=== PATIENT | male | born 1955 | race Caucasian/White ===

== ENCOUNTER 2018-03-01 18:20 | Inpatient (IN) | payer OTHER ==
[~2018-03-01] VITALS: Ht 190.5 cm; Wt 101.8 kg
[2018-03-01 19:56] VITALS: BP 104/61
[2018-03-01] MEDS ORDERED: CYAN-10 PO (20:03)
[2018-03-01] MEDS ORDERED: MAGN400O7 PO (20:03)
[2018-03-01] MEDS ORDERED: morphine SULFATE 10 MG/ML, 1ML IVPush PRN (21:30)
[2018-03-01] MEDS ORDERED: BISACODYL 10 MG SUPP PR PRN (21:30)
[2018-03-01] MEDS: SODIUM CHLORIDE 0.9% 1,000 ML IV SCH (22:44)
[2018-03-02] VITALS (11 sets, daily range): BP systolic 97–116; BP diastolic 42–65
[2018-03-02 05:16] LABS: MEAN CORPUSCULAR HEMOGLOBIN 23.8 pg (27.5-34.5); MEAN CORPUSCULAR HGB CONC 31.6 g/dL (33.2-36.2); MEAN CORPUSCULAR VOLUME 75.3 fL (81-97); MEAN PLATELET VOLUME 7.8 fL (7.4-10.4); PLATELET COUNT 73 x10^3/uL (130-400); RED BLOOD COUNT 2.69 x10^6/uL (4.38-5.82); RED CELL DISTRIBUTION WIDTH 20.8 % (9.4-14.8)
[2018-03-02 05:21] LABS: CHLORIDE 109 mmol/L (98-107)
[2018-03-02 05:30] LABS: ALANINE AMINOTRANSFERASE 12 U/L (12-78); ALBUMIN 2.7 g/dL (3.4-5.0); ALKALINE PHOSPHATASE 71 U/L (45-117); BILIRUBIN,TOTAL 1.4 mg/dL (0.2-1.0); CALCIUM 7.7 mg/dL (8.5-10.1); CREATININE 1.57 mg/dL (0.7-1.3)
[2018-03-02 05:52] LABS: MD YES
[2018-03-02 05:56] LABS: LYMPH#(MANUAL) 28.13 x10^3/uL (1-3.4); LYMPHS% (MANUAL) 98 % (22-44); SEG#(MANUAL) 0.57 x10^3/uL (1.8-6.8); SEGS% (MANUAL) 2 % (42-75)
[2018-03-02 05:57] LABS: <PLATELET ESTIMATE> DECREASED; <PLT MORPHOLOGY> NORMAL PLT MORPH; ANISOCYTOSIS 2+; MICROCYTOSIS 1+; OVALOCYTES 1+; POLYCHROMASIA 1+
[2018-03-02 06:09] LABS: ANION GAP 6 mmol/L (5-15)
[2018-03-02] MEDS: SENNA/DOCUSATE TABLET PO SCH (09:38)
[2018-03-02] MEDS ORDERED: IRON DEXTRAN IV PER PHARMACY IV PRN (10:00)
[2018-03-02] MEDS ORDERED: IRON DEXTRAN COMPLEX 25 MG in SODIUM CHLORIDE 0.9% 50 ML IV ONE (10:00)
[2018-03-02] MEDS: SODIUM CHLORIDE 0.9% 1,000 ML IV SCH ×2 (10:38→18:24)
[2018-03-02] MEDS ORDERED: IRON DEXTRAN COMPLEX IV ONE ×3 (11:00→21:00)
[2018-03-02] MEDS ORDERED: IRON DEXTRAN IV PER PHARMACY IV ONE (11:00)
[2018-03-02] MEDS ORDERED: SODIUM CHLORIDE 0.9% IV ONE ×3 (11:00→21:00)
[2018-03-02 11:14] LABS: HCT (SEDRATE) 21.1 % (39.2-51.8)
[2018-03-02] MEDS: ONDANSETRON 2MG/ML, 2ML IVPush PRN ×2 (12:14→18:24)
[2018-03-02] MEDS: ACETAMINOPHEN 325 MG TABLET PO PRN (16:01)
[2018-03-02] MEDS: POLYETHYLENE GLYCOL 17 GM PACKET PO PRN (17:43)
[2018-03-03] MEDS: ONDANSETRON 2MG/ML, 2ML IVPush PRN (00:50)
[2018-03-03 01:58] VITALS: BP 100/62
[2018-03-03 05:01] LABS: MEAN CORPUSCULAR HEMOGLOBIN 24.2 pg (27.5-34.5); MEAN CORPUSCULAR HGB CONC 31.8 g/dL (33.2-36.2); MEAN CORPUSCULAR VOLUME 76.1 fL (81-97); MEAN PLATELET VOLUME 7.7 fL (7.4-10.4); PLATELET COUNT 80 x10^3/uL (130-400); RED BLOOD COUNT 3.15 x10^6/uL (4.38-5.82); RED CELL DISTRIBUTION WIDTH 21.5 % (9.4-14.8)
[2018-03-03 05:02] LABS: ANION GAP 4 mmol/L (5-15); CALCIUM 8.1 mg/dL (8.5-10.1); CHLORIDE 109 mmol/L (98-107); CREATININE 1.45 mg/dL (0.7-1.3)
[2018-03-03 05:44] LABS: MD YES
[2018-03-03 05:45] LABS: ANISOCYTOSIS 1+; LYMPH#(MANUAL) 29.57 x10^3/uL (1-3.4); LYMPHS% (MANUAL) 93 % (22-44); OVALOCYTES 1+; POLYCHROMASIA 1+; SEG#(MANUAL) 2.23 x10^3/uL (1.8-6.8); SEGS% (MANUAL) 7 % (42-75); TEAR DROPS 1+
[2018-03-03 05:46] LABS: <PLATELET ESTIMATE> DECREASED; <PLT MORPHOLOGY> NORMAL PLT MORPH; MICROCYTOSIS 1+
[2018-03-03 07:11] VITALS: BP 100/61
[2018-03-03] MEDS ORDERED: LIDOCAINE-MPF 2%, 2ML ONE (09:23)
[2018-03-03 12:42] VITALS: BP 103/63
[2018-03-03] MEDS: POLYETHYLENE GLYCOL 17 GM PACKET PO PRN (13:10)
[2018-03-03] MEDS: SENNA/DOCUSATE TABLET PO SCH (13:10)
[2018-03-03] MEDS: ONDANSETRON ODT 4 MG PO PRN (13:10)
[2018-03-03] MEDS ORDERED: BISACODYL 10 MG SUPP PR ONE (16:00)
[2018-03-03] MEDS: SODIUM CHLORIDE 0.9% 1,000 ML IV SCH (16:12)
[2018-03-03] MEDS: ACETAMINOPHEN 325 MG TABLET PO PRN (16:27)
[2018-03-03 20:40] VITALS: BP 100/59
[2018-03-04] MEDS: SODIUM CHLORIDE 0.9% 1,000 ML IV SCH ×2 (01:54→13:52)
[2018-03-04 04:00] VITALS: BP 98/56
[2018-03-04] MEDS: ONDANSETRON ODT 4 MG PO PRN ×2 (04:06→18:20)
[2018-03-04 04:23] LABS: MEAN CORPUSCULAR HEMOGLOBIN 24.5 pg (27.5-34.5); MEAN CORPUSCULAR HGB CONC 31.9 g/dL (33.2-36.2); MEAN CORPUSCULAR VOLUME 76.6 fL (81-97); MEAN PLATELET VOLUME 7.4 fL (7.4-10.4); PLATELET COUNT 87 x10^3/uL (130-400); RED BLOOD COUNT 3.33 x10^6/uL (4.38-5.82)
[2018-03-04 04:28] LABS: ANION GAP 5 mmol/L (5-15); CALCIUM 8.2 mg/dL (8.5-10.1); CHLORIDE 109 mmol/L (98-107); CREATININE 1.41 mg/dL (0.7-1.3)
[2018-03-04 04:40] LABS: BASOPHILS # (AUTO) 0.02 x10^3/uL (0-0.1); BASOPHILS % (AUTO) 0 % (0-1); EOSINOPHILS # (AUTO) 0.07 x10^3/uL (0-0.4); EOSINOPHILS % (AUTO) 0 % (1-7); LYMPHOCYTES # (AUTO) 28.16 x10^3/uL (1-3.4); LYMPHOCYTES % (AUTO) 90 % (22-44); MD SCAN; MONOCYTES % (AUTO) 4 % (2-9); NEUTROPHILS # (AUTO) 1.84 x10^3/uL (1.8-6.8); NEUTROPHILS % (AUTO) 6 % (42-75)
[2018-03-04 07:45] VITALS: BP 100/58
[2018-03-04] MEDS ORDERED: LIDOCAINE-MPF 2%, 2ML ONE (07:52)
[2018-03-04] MEDS ORDERED: FENTANYL PF 100 MCG/2ML ONE (08:00)
[2018-03-04] MEDS ORDERED: FLUMAZENIL 0.1 MG/1 ML, 5ML ONE (08:01)
[2018-03-04] MEDS ORDERED: NALOXONE 1 MG/ML, 2ML ONE (08:01)
[2018-03-04] MEDS ORDERED: MIDAZOLAM 1 MG/ML, 5ML ONE (08:01)
[2018-03-04] MEDS: SENNA/DOCUSATE TABLET PO SCH (09:00)
[2018-03-04 09:11] VITALS: BP 102/55
[2018-03-04 16:15] VITALS: BP 101/58
[2018-03-04] MEDS ORDERED: OMNIPAQUE 350 MG/ML, 100ML BOTTLE ONE (17:27)
[2018-03-04] MEDS: ACETAMINOPHEN 325 MG TABLET PO PRN (18:20)
[2018-03-04 20:20] VITALS: BP 105/64
[2018-03-04] MEDS ORDERED: FAMOTIDINE 20 MG/2 ML IVPush SCH (21:00)
[2018-03-04] MEDS: FAMOTIDINE 20 MG TABLET PO SCH (21:26)
[2018-03-05] MEDS: SODIUM CHLORIDE 0.9% 1,000 ML IV SCH ×3 (01:42→20:32)
[2018-03-05 04:20] VITALS: BP 97/58
[2018-03-05 08:00] VITALS: BP 103/62
[2018-03-05] MEDS: ACETAMINOPHEN 325 MG TABLET PO PRN (10:05)
[2018-03-05] MEDS: FAMOTIDINE 20 MG TABLET PO SCH ×2 (10:05→20:32)
[2018-03-05] MEDS: SENNA/DOCUSATE TABLET PO SCH (10:05)
[2018-03-05 13:52] VITALS: BP 100/58
[2018-03-05 20:02] VITALS: BP 106/65
[2018-03-06 03:04] VITALS: BP 107/66
[2018-03-06 04:55] LABS: MEAN CORPUSCULAR HEMOGLOBIN 24.6 pg (27.5-34.5); MEAN CORPUSCULAR HGB CONC 32.3 g/dL (33.2-36.2); MEAN CORPUSCULAR VOLUME 76.3 fL (81-97); RED BLOOD COUNT 2.95 x10^6/uL (4.38-5.82); RED CELL DISTRIBUTION WIDTH 22.7 % (9.4-14.8)
[2018-03-06 05:00] VITALS: BP 146/78
[2018-03-06] MEDS: SODIUM CHLORIDE 0.9% 1,000 ML IV SCH ×2 (05:39→19:48)
[2018-03-06 05:46] LABS: MD YES
[2018-03-06 05:47] LABS: MEAN PLATELET VOLUME 7.2 fL (7.4-10.4); PLATELET COUNT 75 x10^3/uL (130-400)
[2018-03-06 05:48] LABS: <PLATELET ESTIMATE> DECREASED; <PLT MORPHOLOGY> NORMAL PLT MORPH; ANISOCYTOSIS 1+; LYMPH#(MANUAL) 21.86 x10^3/uL (1-3.4); LYMPHS% (MANUAL) 93 % (22-44); MICROCYTOSIS 1+; MONOS#(MANUAL) 0.47 x10^3/uL (0.3-2.7); MONOS% (MANUAL) 2 % (2-9); POLYCHROMASIA 1+; SEG#(MANUAL) 1.18 x10^3/uL (1.8-6.8); SEGS% (MANUAL) 5 % (42-75)
[2018-03-06 05:51] LABS: OVALOCYTES 1+
[2018-03-06 09:19] VITALS: BP 106/65
[2018-03-06] MEDS: SENNA/DOCUSATE TABLET PO SCH (09:21)
[2018-03-06] MEDS: FAMOTIDINE 20 MG TABLET PO SCH ×2 (09:21→19:46)
[2018-03-06 13:12] VITALS: BP 111/64
[2018-03-06 19:06] VITALS: BP 112/66
[2018-03-06] MEDS: ONDANSETRON ODT 4 MG PO PRN (19:46)
[2018-03-07 01:34] VITALS: BP 95/60
[2018-03-07 05:06] LABS: MEAN CORPUSCULAR HEMOGLOBIN 25.3 pg (27.5-34.5); MEAN CORPUSCULAR HGB CONC 32.7 g/dL (33.2-36.2); MEAN CORPUSCULAR VOLUME 77.4 fL (81-97); MEAN PLATELET VOLUME 7.4 fL (7.4-10.4); PLATELET COUNT 72 x10^3/uL (130-400); RED BLOOD COUNT 2.82 x10^6/uL (4.38-5.82); RED CELL DISTRIBUTION WIDTH 23.2 % (9.4-14.8)
[2018-03-07 05:16] LABS: ANION GAP 4 mmol/L (5-15); CALCIUM 7.6 mg/dL (8.5-10.1); CHLORIDE 111 mmol/L (98-107); CREATININE 1.39 mg/dL (0.7-1.3)
[2018-03-07 05:34] LABS: BASOPHILS # (AUTO) 0.09 x10^3/uL (0-0.1); BASOPHILS % (AUTO) 0 % (0-1); EOSINOPHILS # (AUTO) 0.05 x10^3/uL (0-0.4); EOSINOPHILS % (AUTO) 0 % (1-7); LYMPHOCYTES # (AUTO) 23.07 x10^3/uL (1-3.4); LYMPHOCYTES % (AUTO) 92 % (22-44); MD SCAN; MONOCYTES # (AUTO) 0.64 x10^3/uL (0.2-0.8); MONOCYTES % (AUTO) 3 % (2-9); NEUTROPHILS # (AUTO) 1.13 x10^3/uL (1.8-6.8); NEUTROPHILS % (AUTO) 5 % (42-75)
[2018-03-07 07:25] VITALS: BP 105/61
[2018-03-07 08:26] LABS: BILIRUBIN, DIRECT 0.4 mg/dL (0.1-0.2)
[2018-03-07 08:27] LABS: BILIRUBIN,TOTAL 1.4 mg/dL (0.2-1.0)
[2018-03-07 08:36] LABS: RETICULOCYTE COUNT % 3.51 % (0.5-1.5)
[2018-03-07 08:39] LABS: RED BLOOD COUNT 2.78 x10^6/uL (4.38-5.82)
[2018-03-07 08:41] LABS: ABSOLUTE RETICS # 0.098 x10^6/uL (0.5-1.5)
[2018-03-07] MEDS: FAMOTIDINE 20 MG TABLET PO SCH ×2 (08:59→20:33)
[2018-03-07] MEDS: ACETAMINOPHEN 325 MG TABLET PO PRN (08:59)
[2018-03-07] MEDS: SENNA/DOCUSATE TABLET PO SCH (09:00)
[2018-03-07] MEDS: SODIUM CHLORIDE 0.9% 1,000 ML IV SCH ×2 (09:04→23:53)
[2018-03-07 12:39] VITALS: BP 94/53
[2018-03-07] MEDS ORDERED: PHARMACY MAY ADJ FOR RENAL FX MC PRN (14:00)
[2018-03-07] MEDS ORDERED: FENTANYL PF 100 MCG/2ML ONE (15:22)
[2018-03-07] MEDS ORDERED: FLUMAZENIL 0.1 MG/1 ML, 5ML ONE (15:22)
[2018-03-07] MEDS ORDERED: MIDAZOLAM 1 MG/ML, 5ML ONE (15:22)
[2018-03-07] MEDS ORDERED: NALOXONE 1 MG/ML, 2ML ONE (15:23)
[2018-03-07 16:22] VITALS: BP 108/66
[2018-03-07 19:30] VITALS: BP 102/57
[2018-03-07] MEDS: SODIUM CHLORIDE NASAL SPRAY 45ML BOTTLE NAS SCH (20:33)
[2018-03-07 21:31] LABS: CLOSTRIDIUM DIFFICILE ANTIGEN NEGATIVE; CLOSTRIDIUM DIFFICILE TOXIN NEGATIVE (Negative)
[2018-03-08] VITALS (7 sets, daily range): BP systolic 101–119; BP diastolic 59–73
[2018-03-08 05:41] LABS: ALBUMIN 2.5 g/dL (3.4-5.0); ANION GAP 7 mmol/L (5-15); CALCIUM 7.6 mg/dL (8.5-10.1); CHLORIDE 112 mmol/L (98-107)
[2018-03-08 05:44] LABS: ALANINE AMINOTRANSFERASE 14 U/L (12-78); ALKALINE PHOSPHATASE 82 U/L (45-117); BILIRUBIN,TOTAL 1.2 mg/dL (0.2-1.0); CREATININE 1.34 mg/dL (0.7-1.3); TOTAL PROTEIN 5.7 g/dL (6.4-8.2)
[2018-03-08 05:50] LABS: MEAN CORPUSCULAR HEMOGLOBIN 24.6 pg (27.5-34.5); MEAN CORPUSCULAR HGB CONC 32.1 g/dL (33.2-36.2); MEAN CORPUSCULAR VOLUME 76.7 fL (81-97); MEAN PLATELET VOLUME 7.4 fL (7.4-10.4); PLATELET COUNT 67 x10^3/uL (130-400); RED CELL DISTRIBUTION WIDTH 24.3 % (9.4-14.8)
[2018-03-08 06:28] LABS: MD YES
[2018-03-08 06:30] LABS: LYMPH#(MANUAL) 21.24 x10^3/uL (1-3.4); LYMPHS% (MANUAL) 94 % (22-44); SEGS% (MANUAL) 4 % (42-75)
[2018-03-08 06:31] LABS: MONOS#(MANUAL) 0.45 x10^3/uL (0.3-2.7); MONOS% (MANUAL) 2 % (2-9)
[2018-03-08 06:33] LABS: <PLATELET ESTIMATE> DECREASED
[2018-03-08 06:34] LABS: <PLT MORPHOLOGY> NORMAL PLT MORPH
[2018-03-08 06:35] LABS: ANISOCYTOSIS 1+; MICROCYTOSIS 1+; OVALOCYTES 1+; POLYCHROMASIA 1+
[2018-03-08 06:36] LABS: BASOPHILLIC STIPPLING 1+
[2018-03-08] MEDS: SENNA/DOCUSATE TABLET PO SCH ×2 (07:22→19:49)
[2018-03-08] MEDS: SODIUM CHLORIDE NASAL SPRAY 45ML BOTTLE NAS SCH ×2 (07:22→19:49)
[2018-03-08] MEDS: FAMOTIDINE 20 MG TABLET PO SCH ×2 (07:22→19:49)
[2018-03-08] MEDS: ACETAMINOPHEN 325 MG TABLET PO PRN (12:32)
[2018-03-08 15:52] LABS: MD YES; MEAN CORPUSCULAR HEMOGLOBIN 24.9 pg (27.5-34.5); MEAN CORPUSCULAR VOLUME 77.7 fL (81-97); PLATELET COUNT 71 x10^3/uL (130-400); RED BLOOD COUNT 3.37 x10^6/uL (4.38-5.82)
[2018-03-08 15:54] LABS: ANISOCYTOSIS 1+; BANDS%(MANUAL) 1 % (0-7); LYMPH#(MANUAL) 18.03 x10^3/uL (1-3.4); LYMPHS% (MANUAL) 92 % (22-44); POLYCHROMASIA 1+; SEG#(MANUAL) 1.37 x10^3/uL (1.8-6.8); SEGS% (MANUAL) 7 % (42-75)
[2018-03-08 15:55] LABS: <PLATELET ESTIMATE> DECREASED; <PLT MORPHOLOGY> NORMAL PLT MORPH; MICROCYTOSIS 1+; OVALOCYTES 1+
[2018-03-08] MEDS: SODIUM CHLORIDE 0.9% 1,000 ML IV SCH (17:01)
[2018-03-08] MEDS: ONDANSETRON ODT 4 MG PO PRN (17:05)
[2018-03-09 03:26] VITALS: BP 102/64
[2018-03-09 05:05] LABS: MEAN CORPUSCULAR HEMOGLOBIN 24.8 pg (27.5-34.5); MEAN CORPUSCULAR HGB CONC 31.8 g/dL (33.2-36.2); MEAN CORPUSCULAR VOLUME 78.1 fL (81-97); MEAN PLATELET VOLUME 7.8 fL (7.4-10.4); PLATELET COUNT 66 x10^3/uL (130-400); RED BLOOD COUNT 3.04 x10^6/uL (4.38-5.82); RED CELL DISTRIBUTION WIDTH 22.8 % (9.4-14.8)
[2018-03-09 05:06] LABS: ALBUMIN 2.5 g/dL (3.4-5.0); ANION GAP 7 mmol/L (5-15); CALCIUM 7.4 mg/dL (8.5-10.1); CHLORIDE 112 mmol/L (98-107)
[2018-03-09 05:12] LABS: ALANINE AMINOTRANSFERASE 13 U/L (12-78); ALKALINE PHOSPHATASE 82 U/L (45-117); BILIRUBIN,TOTAL 1.1 mg/dL (0.2-1.0); TOTAL PROTEIN 5.7 g/dL (6.4-8.2)
[2018-03-09 05:40] LABS: MD YES
[2018-03-09 05:42] LABS: ANISOCYTOSIS 1+; EOS#(MANUAL) 0.19 x10^3/uL (0.0-0.4); EOS% (MANUAL) 1 % (1-7); LYMPH#(MANUAL) 16.79 x10^3/uL (1-3.4); LYMPHS% (MANUAL) 87 % (22-44); MICROCYTOSIS 1+; MONOS#(MANUAL) 0.19 x10^3/uL (0.3-2.7); MONOS% (MANUAL) 1 % (2-9); POLYCHROMASIA 1+; SEG#(MANUAL) 2.12 x10^3/uL (1.8-6.8); SEGS% (MANUAL) 11 % (42-75)
[2018-03-09 05:43] LABS: OVALOCYTES 1+
[2018-03-09 05:50] LABS: <PLATELET ESTIMATE> DECREASED; <PLT MORPHOLOGY> NORMAL PLT MORPH; BASOPHILLIC STIPPLING 1+
[2018-03-09] MEDS: SODIUM CHLORIDE 0.9% 1,000 ML IV SCH ×2 (06:14→19:43)
[2018-03-09] MEDS: FAMOTIDINE 20 MG TABLET PO SCH ×2 (08:27→20:52)
[2018-03-09] MEDS: SODIUM CHLORIDE NASAL SPRAY 45ML BOTTLE NAS SCH ×3 (08:27→22:52)
[2018-03-09 08:32] VITALS: BP 100/63
[2018-03-09] MEDS: SIMETHICONE 80 MG CHEW TAB PO PRN (08:56)
[2018-03-09] MEDS: ONDANSETRON 2MG/ML, 2ML IVPush PRN (08:56)
[2018-03-09] MEDS: POLYETHYLENE GLYCOL 17 GM PACKET PO PRN (13:23)
[2018-03-09] MEDS: ACETAMINOPHEN 325 MG TABLET PO PRN ×3 (13:23→23:22)
[2018-03-09 13:50] VITALS: BP 104/65
[2018-03-09 20:08] VITALS: BP 98/61
[2018-03-10 01:20] VITALS: BP 105/66
[2018-03-10] MEDS: ACETAMINOPHEN 325 MG TABLET PO PRN ×3 (04:10→18:33)
[2018-03-10 04:46] LABS: ALANINE AMINOTRANSFERASE 11 U/L (12-78); ALBUMIN 2.5 g/dL (3.4-5.0); ANION GAP 4 mmol/L (5-15); CALCIUM 7.4 mg/dL (8.5-10.1); CHLORIDE 113 mmol/L (98-107); CREATININE 1.22 mg/dL (0.7-1.3); MEAN CORPUSCULAR HEMOGLOBIN 24.7 pg (27.5-34.5); MEAN CORPUSCULAR HGB CONC 32.4 g/dL (33.2-36.2); MEAN CORPUSCULAR VOLUME 76.4 fL (81-97); RED BLOOD COUNT 2.98 x10^6/uL (4.38-5.82); RED CELL DISTRIBUTION WIDTH 23.5 % (9.4-14.8)
[2018-03-10 04:48] LABS: ALKALINE PHOSPHATASE 85 U/L (45-117); BILIRUBIN,TOTAL 1.1 mg/dL (0.2-1.0); TOTAL PROTEIN 5.7 g/dL (6.4-8.2)
[2018-03-10 05:48] LABS: MEAN PLATELET VOLUME 7.5 fL (7.4-10.4); PLATELET COUNT 59 x10^3/uL (130-400)
[2018-03-10 05:49] LABS: MD YES
[2018-03-10 05:50] LABS: LYMPH#(MANUAL) 14.14 x10^3/uL (1-3.4); LYMPHS% (MANUAL) 93 % (22-44); MONOS#(MANUAL) 0.15 x10^3/uL (0.3-2.7); MONOS% (MANUAL) 1 % (2-9); SEG#(MANUAL) 0.91 x10^3/uL (1.8-6.8); SEGS% (MANUAL) 6 % (42-75)
[2018-03-10 05:51] LABS: <PLATELET ESTIMATE> DECREASED; <PLT MORPHOLOGY> NORMAL PLT MORPH; ANISOCYTOSIS 1+; MICROCYTOSIS 1+; OVALOCYTES 1+; POLYCHROMASIA 1+
[2018-03-10] MEDS ORDERED: POTASSIUM CHLORIDE 20 MEQ TAB.ER.PRT PO ONE (06:30)
[2018-03-10 07:06] VITALS: BP 112/69
[2018-03-10] MEDS: SENNA/DOCUSATE TABLET PO SCH (08:23)
[2018-03-10] MEDS: FAMOTIDINE 20 MG TABLET PO SCH ×2 (08:23→20:10)
[2018-03-10] MEDS: POLYETHYLENE GLYCOL 17 GM PACKET PO PRN (08:40)
[2018-03-10] MEDS: SODIUM CHLORIDE 0.9% 1,000 ML IV SCH ×2 (09:00→22:40)
[2018-03-10 12:52] VITALS: BP 114/77
[2018-03-10 20:06] VITALS: BP 109/67
[2018-03-10] MEDS: SODIUM CHLORIDE NASAL SPRAY 45ML BOTTLE NAS SCH (20:10)
[2018-03-11] MEDS: ACETAMINOPHEN 325 MG TABLET PO PRN ×3 (01:27→15:40)
[2018-03-11 01:40] VITALS: BP 118/72
[2018-03-11 04:23] VITALS: BP 105/64
[2018-03-11 05:01] LABS: ALBUMIN 2.4 g/dL (3.4-5.0); ANION GAP 3 mmol/L (5-15); CALCIUM 7.5 mg/dL (8.5-10.1); CHLORIDE 114 mmol/L (98-107)
[2018-03-11 05:02] LABS: CREATININE 1.19 mg/dL (0.7-1.3)
[2018-03-11 05:03] LABS: MEAN CORPUSCULAR HEMOGLOBIN 25.2 pg (27.5-34.5); MEAN CORPUSCULAR HGB CONC 32.7 g/dL (33.2-36.2); RED CELL DISTRIBUTION WIDTH 22.6 % (9.4-14.8)
[2018-03-11 05:41] LABS: MD YES
[2018-03-11 05:42] LABS: MEAN PLATELET VOLUME 7.6 fL (7.4-10.4); PLATELET COUNT 63 x10^3/uL (130-400)
[2018-03-11 05:43] LABS: LYMPH#(MANUAL) 15.92 x10^3/uL (1-3.4); LYMPHS% (MANUAL) 92 % (22-44); SEG#(MANUAL) 1.38 x10^3/uL (1.8-6.8); SEGS% (MANUAL) 8 % (42-75)
[2018-03-11 05:44] LABS: <PLATELET ESTIMATE> DECREASED; <PLT MORPHOLOGY> NORMAL PLT MORPH; ANISOCYTOSIS 1+; MICROCYTOSIS 1+; OVALOCYTES 1+; POLYCHROMASIA 1+
[2018-03-11] MEDS ORDERED: POTASSIUM CHLORIDE 20 MEQ TAB.ER.PRT PO ONE (06:00)
[2018-03-11] MEDS: SODIUM CHLORIDE NASAL SPRAY 45ML BOTTLE NAS SCH ×2 (07:58→20:46)
[2018-03-11] MEDS: SENNA/DOCUSATE TABLET PO SCH (07:58)
[2018-03-11] MEDS: FAMOTIDINE 20 MG TABLET PO SCH ×2 (07:58→20:45)
[2018-03-11 08:26] VITALS: BP 101/62
[2018-03-11 13:27] VITALS: BP 112/73
[2018-03-11 20:35] VITALS: BP 118/74
[2018-03-12] MEDS: ACETAMINOPHEN 325 MG TABLET PO PRN ×5 (00:31→22:17)
[2018-03-12 01:26] VITALS: BP 107/68
[2018-03-12 05:06] LABS: MEAN CORPUSCULAR HEMOGLOBIN 24.7 pg (27.5-34.5); MEAN CORPUSCULAR HGB CONC 31.9 g/dL (33.2-36.2); MEAN CORPUSCULAR VOLUME 77.6 fL (81-97); MEAN PLATELET VOLUME 7.6 fL (7.4-10.4); PLATELET COUNT 64 x10^3/uL (130-400); RED BLOOD COUNT 2.93 x10^6/uL (4.38-5.82); RED CELL DISTRIBUTION WIDTH 22.9 % (9.4-14.8)
[2018-03-12 05:09] LABS: ALBUMIN 2.5 g/dL (3.4-5.0); ANION GAP 5 mmol/L (5-15); CALCIUM 7.8 mg/dL (8.5-10.1); CHLORIDE 112 mmol/L (98-107)
[2018-03-12 05:10] LABS: CREATININE 1.23 mg/dL (0.7-1.3)
[2018-03-12 07:02] VITALS: BP 119/68
[2018-03-12 07:07] LABS: MD YES
[2018-03-12 07:12] LABS: LYMPH#(MANUAL) 18.75 x10^3/uL (1-3.4); LYMPHS% (MANUAL) 91 % (22-44); MONOS#(MANUAL) 0.21 x10^3/uL (0.3-2.7); MONOS% (MANUAL) 1 % (2-9); SEG#(MANUAL) 1.65 x10^3/uL (1.8-6.8); SEGS% (MANUAL) 8 % (42-75)
[2018-03-12 07:13] LABS: ANISOCYTOSIS 1+; MICROCYTOSIS 1+; OVALOCYTES 1+; POLYCHROMASIA 1+
[2018-03-12 07:16] LABS: <PLATELET ESTIMATE> DECREASED; <PLT MORPHOLOGY> NORMAL PLT MORPH
[2018-03-12 07:19] LABS: HYPOCHROMIA 1+; TEAR DROPS 1+
[2018-03-12] MEDS: SODIUM CHLORIDE NASAL SPRAY 45ML BOTTLE NAS SCH ×2 (07:35→21:26)
[2018-03-12] MEDS: SENNA/DOCUSATE TABLET PO SCH (07:36)
[2018-03-12] MEDS: FAMOTIDINE 20 MG TABLET PO SCH ×2 (07:36→21:26)
[2018-03-12 15:05] VITALS: BP 115/68
[2018-03-12] MEDS: SIMETHICONE 80 MG CHEW TAB PO PRN (18:08)
[2018-03-12 20:34] VITALS: BP 108/67
[2018-03-13 01:18] VITALS: BP 95/53
[2018-03-13 04:54] LABS: MEAN CORPUSCULAR HEMOGLOBIN 24.4 pg (27.5-34.5); MEAN CORPUSCULAR HGB CONC 31.8 g/dL (33.2-36.2); MEAN CORPUSCULAR VOLUME 76.8 fL (81-97); MEAN PLATELET VOLUME 7.6 fL (7.4-10.4); PLATELET COUNT 73 x10^3/uL (130-400); RED BLOOD COUNT 3.01 x10^6/uL (4.38-5.82)
[2018-03-13 05:02] LABS: ALBUMIN 2.6 g/dL (3.4-5.0); ANION GAP 6 mmol/L (5-15); CALCIUM 7.6 mg/dL (8.5-10.1); CHLORIDE 111 mmol/L (98-107)
[2018-03-13 05:05] LABS: ALANINE AMINOTRANSFERASE 13 U/L (12-78); ALKALINE PHOSPHATASE 105 U/L (45-117); BILIRUBIN,TOTAL 0.9 mg/dL (0.2-1.0); CREATININE 1.33 mg/dL (0.7-1.3); TOTAL PROTEIN 5.9 g/dL (6.4-8.2)
[2018-03-13 05:46] LABS: MD YES
[2018-03-13 05:48] LABS: LYMPH#(MANUAL) 19.87 x10^3/uL (1-3.4); LYMPHS% (MANUAL) 92 % (22-44); SEG#(MANUAL) 1.73 x10^3/uL (1.8-6.8); SEGS% (MANUAL) 8 % (42-75)
[2018-03-13 05:49] LABS: ANISOCYTOSIS 1+; HYPOCHROMIA 1+; MICROCYTOSIS 1+; OVALOCYTES 1+; POLYCHROMASIA 1+
[2018-03-13 05:52] LABS: <PLATELET ESTIMATE> DECREASED; <PLT MORPHOLOGY> NORMAL PLT MORPH
[2018-03-13 05:54] LABS: TEAR DROPS 1+
[2018-03-13 08:00] VITALS: BP 116/71
[2018-03-13] MEDS: FAMOTIDINE 20 MG TABLET PO SCH ×2 (08:53→20:23)
[2018-03-13] MEDS: SENNA/DOCUSATE TABLET PO SCH (08:53)
[2018-03-13] MEDS: SODIUM CHLORIDE NASAL SPRAY 45ML BOTTLE NAS SCH ×2 (09:52→20:24)
[2018-03-13 11:18] LABS: INTERNATIONAL NORMALIZED RATIO 1.18 (0.93-1.1); PROTHROMBIN TIME 12.2 Seconds (9.6-11.5)
[2018-03-13 14:30] VITALS: BP 121/72
[2018-03-13] MEDS ORDERED: FENTANYL PF 100 MCG/2ML ONE (14:37)
[2018-03-13] MEDS ORDERED: MIDAZOLAM 1 MG/ML, 5ML ONE ×2 (14:37)
[2018-03-13] MEDS ORDERED: NALOXONE 1 MG/ML, 2ML ONE (14:38)
[2018-03-13] MEDS ORDERED: FLUMAZENIL 0.1 MG/1 ML, 5ML ONE (14:38)
[2018-03-13] MEDS ORDERED: LIDOCAINE-MPF 2%, 2ML ONE (14:41)
[2018-03-13] MEDS ORDERED: CEFAZOLIN PMX 1GM/50ML 50 ML ONE (14:57)
[2018-03-13] MEDS ORDERED: ONDANSETRON IVPB ONE (15:30)
[2018-03-13] MEDS: SODIUM CHLORIDE 0.9% 1,000 ML IV SCH ×2 (18:05→23:57)
[2018-03-13] MEDS: ENOXAPARIN 40 MG/0.4 ML SQ SCH (18:37)
[2018-03-13 20:11] VITALS: BP 104/63
[2018-03-13] MEDS: ACETAMINOPHEN 325 MG TABLET PO PRN (23:53)
[2018-03-13] MEDS: DIPHENHYDRAMINE/ZINC CRM 2%, 30GM TP PRN (23:57)
[2018-03-14 01:24] VITALS: BP 104/63
[2018-03-14 05:10] LABS: MEAN CORPUSCULAR HEMOGLOBIN 25.4 pg (27.5-34.5); MEAN CORPUSCULAR VOLUME 77.1 fL (81-97); MEAN PLATELET VOLUME 7.7 fL (7.4-10.4); PLATELET COUNT 72 x10^3/uL (130-400); RED BLOOD COUNT 2.96 x10^6/uL (4.38-5.82); RED CELL DISTRIBUTION WIDTH 22.5 % (9.4-14.8)
[2018-03-14 05:12] LABS: ALBUMIN 2.4 g/dL (3.4-5.0); ANION GAP 7 mmol/L (5-15); CALCIUM 7.7 mg/dL (8.5-10.1); CHLORIDE 113 mmol/L (98-107); CREATININE 1.28 mg/dL (0.7-1.3)
[2018-03-14 05:46] LABS: MD YES
[2018-03-14 05:50] LABS: ANISOCYTOSIS 1+; HYPOCHROMIA 1+; LYMPH#(MANUAL) 22.42 x10^3/uL (1-3.4); LYMPHS% (MANUAL) 95 % (22-44); MICROCYTOSIS 1+; OVALOCYTES 1+; POLYCHROMASIA 1+; SEG#(MANUAL) 1.18 x10^3/uL (1.8-6.8); SEGS% (MANUAL) 5 % (42-75)
[2018-03-14 05:51] LABS: SMUDGE CELLS 1+
[2018-03-14 05:52] LABS: TEAR DROPS 1+
[2018-03-14 05:53] LABS: <PLATELET ESTIMATE> DECREASED; <PLT MORPHOLOGY> NORMAL PLT MORPH
[2018-03-14] MEDS: SODIUM CHLORIDE 0.9% 1,000 ML IV SCH ×3 (06:26→20:33)
[2018-03-14 07:54] VITALS: BP 112/70
[2018-03-14] MEDS: FEBUXOSTAT 40 MG TABLET PO SCH (08:47)
[2018-03-14] MEDS: SODIUM CHLORIDE NASAL SPRAY 45ML BOTTLE NAS SCH ×2 (08:47→20:42)
[2018-03-14] MEDS: FAMOTIDINE 20 MG TABLET PO SCH ×2 (08:47→20:41)
[2018-03-14] MEDS: SENNA/DOCUSATE TABLET PO SCH (08:47)
[2018-03-14 10:58] LABS: ALANINE AMINOTRANSFERASE 13 U/L (12-78); ALKALINE PHOSPHATASE 104 U/L (45-117); BILIRUBIN,TOTAL 0.8 mg/dL (0.2-1.0); TOTAL PROTEIN 5.7 g/dL (6.4-8.2)
[2018-03-14 11:02] LABS: ALANINE AMINOTRANSFERASE 15 U/L (12-78); ALBUMIN 2.4 g/dL (3.4-5.0); ANION GAP 8 mmol/L (5-15); CALCIUM 7.7 mg/dL (8.5-10.1); CHLORIDE 112 mmol/L (98-107); CREATININE 1.26 mg/dL (0.7-1.3)
[2018-03-14 11:04] LABS: ALKALINE PHOSPHATASE 101 U/L (45-117); BILIRUBIN,TOTAL 0.7 mg/dL (0.2-1.0); TOTAL PROTEIN 5.8 g/dL (6.4-8.2)
[2018-03-14] MEDS ORDERED: DEXAMETHASONE 10 MG in SODIUM CHLORIDE 0.9% 50 ML IV ONE (12:30)
[2018-03-14] MEDS ORDERED: DIPHENHYDRAMINE 50 MG/ML, 1ML IVPush ONE (12:30)
[2018-03-14] MEDS ORDERED: ACETAMINOPHEN 325 MG TABLET PO ONE (12:30)
[2018-03-14] MEDS ORDERED: SODIUM CHLORIDE 0.9% IV ONE (13:00)
[2018-03-14] MEDS ORDERED: RITUXIMAB IV ONE (13:00)
[2018-03-14 14:30] VITALS: BP 116/73
[2018-03-14] MEDS: SIMETHICONE 80 MG CHEW TAB PO PRN (15:37)
[2018-03-14] MEDS: ENOXAPARIN 40 MG/0.4 ML SQ SCH (18:33)
[2018-03-14 20:27] VITALS: BP 122/89
[2018-03-14] MEDS: ACETAMINOPHEN 325 MG TABLET PO PRN (20:41)
[2018-03-15 02:41] VITALS: BP 110/68
[2018-03-15] MEDS: SODIUM CHLORIDE 0.9% 1,000 ML IV SCH ×3 (03:32→20:26)
[2018-03-15 05:58] LABS: CHLORIDE 112 mmol/L (98-107)
[2018-03-15 06:09] LABS: ALANINE AMINOTRANSFERASE 14 U/L (12-78); ALBUMIN 2.4 g/dL (3.4-5.0); ALKALINE PHOSPHATASE 114 U/L (45-117); ANION GAP 9 mmol/L (5-15); CALCIUM 6.8 mg/dL (8.5-10.1); CREATININE 1.21 mg/dL (0.7-1.3); TOTAL PROTEIN 5.9 g/dL (6.4-8.2)
[2018-03-15 06:39] LABS: MEAN CORPUSCULAR HEMOGLOBIN 25.3 pg (27.5-34.5); MEAN CORPUSCULAR HGB CONC 33.2 g/dL (33.2-36.2); MEAN CORPUSCULAR VOLUME 76.1 fL (81-97); RED BLOOD COUNT 2.99 x10^6/uL (4.38-5.82); RED CELL DISTRIBUTION WIDTH 22.2 % (9.4-14.8)
[2018-03-15 06:42] LABS: PLATELET COUNT 22 x10^3/uL (130-400)
[2018-03-15 06:43] LABS: MEAN PLATELET VOLUME 9.1 fL (7.4-10.4)
[2018-03-15 06:44] LABS: BASOPHILS # (AUTO) 0.26 x10^3/uL (0-0.1); BASOPHILS % (AUTO) 4 % (0-1); EOSINOPHILS # (AUTO) 0.02 x10^3/uL (0-0.4); EOSINOPHILS % (AUTO) 0 % (1-7); LYMPHOCYTES % (AUTO) 73 % (22-44); MD SCAN; MONOCYTES # (AUTO) 0.22 x10^3/uL (0.2-0.8); MONOCYTES % (AUTO) 3 % (2-9); NEUTROPHILS # (AUTO) 1.52 x10^3/uL (1.8-6.8); NEUTROPHILS % (AUTO) 21 % (42-75)
[2018-03-15] MEDS: ONDANSETRON 16 MG, DEXAMETHASONE 10 MG in SODIUM CHLORIDE 0.9% 50 ML IVPB SCH (08:27)
[2018-03-15 08:30] VITALS: BP 102/61
[2018-03-15] MEDS ORDERED: ONDANSETRON 16 MG in SODIUM CHLORIDE 0.9% 50 ML IVPB SCH (08:30)
[2018-03-15] MEDS: SENNA/DOCUSATE TABLET PO SCH (09:00)
[2018-03-15] MEDS ORDERED: BENDAMUSTINE IVPB SCH (09:00)
[2018-03-15] MEDS ORDERED: SODIUM CHLORIDE 0.9% IVPB SCH (09:00)
[2018-03-15] MEDS: SODIUM CHLORIDE 0.9% IVPB SCH (09:10)
[2018-03-15] MEDS: BENDAMUSTINE IVPB SCH (09:10)
[2018-03-15] MEDS: FAMOTIDINE 20 MG TABLET PO SCH ×2 (09:15→20:26)
[2018-03-15] MEDS: SODIUM CHLORIDE NASAL SPRAY 45ML BOTTLE NAS SCH ×2 (09:15→20:26)
[2018-03-15] MEDS: FEBUXOSTAT 40 MG TABLET PO SCH (09:15)
[2018-03-15] MEDS: ENOXAPARIN 40 MG/0.4 ML SQ SCH (12:29)
[2018-03-15 14:30] VITALS: BP 104/64
[2018-03-15] MEDS: ACETAMINOPHEN 325 MG TABLET PO PRN ×2 (14:58→20:26)
[2018-03-15 16:59] LABS: MD YES; MEAN CORPUSCULAR HEMOGLOBIN 24.7 pg (27.5-34.5); MEAN CORPUSCULAR HGB CONC 32.3 g/dL (33.2-36.2); MEAN CORPUSCULAR VOLUME 76.5 fL (81-97); MEAN PLATELET VOLUME 8.8 fL (7.4-10.4); RED BLOOD COUNT 3.02 x10^6/uL (4.38-5.82); RED CELL DISTRIBUTION WIDTH 22.6 % (9.4-14.8)
[2018-03-15 17:01] LABS: LYMPH#(MANUAL) 14.92 x10^3/uL (1-3.4); LYMPHS% (MANUAL) 91 % (22-44); MONOS#(MANUAL) 0.16 x10^3/uL (0.3-2.7); MONOS% (MANUAL) 1 % (2-9); SEG#(MANUAL) 1.31 x10^3/uL (1.8-6.8); SEGS% (MANUAL) 8 % (42-75)
[2018-03-15 17:02] LABS: <PLATELET ESTIMATE> DECREASED; <PLT MORPHOLOGY> NORMAL PLT MORPH; ANISOCYTOSIS 1+; HYPOCHROMIA 1+; MICROCYTOSIS 1+; OVALOCYTES 1+; POLYCHROMASIA 1+; TEAR DROPS 1+
[2018-03-15 17:05] LABS: PLATELET COUNT 30 x10^3/uL (130-400)
[2018-03-15] MEDS: DIPHENHYDRAMINE/ZINC CRM 2%, 30GM TP PRN (20:26)
[2018-03-15 20:54] VITALS: BP 111/71
[2018-03-16 01:15] VITALS: BP 104/65
[2018-03-16] MEDS: SODIUM CHLORIDE 0.9% 1,000 ML IV SCH ×2 (04:14→12:00)
[2018-03-16] MEDS: ACETAMINOPHEN 325 MG TABLET PO PRN (05:25)
[2018-03-16 05:52] LABS: ALANINE AMINOTRANSFERASE 13 U/L (12-78); ALBUMIN 2.4 g/dL (3.4-5.0); ANION GAP 4 mmol/L (5-15); CALCIUM 7.5 mg/dL (8.5-10.1); CHLORIDE 114 mmol/L (98-107); CREATININE 1.05 mg/dL (0.7-1.3)
[2018-03-16 05:54] LABS: ALKALINE PHOSPHATASE 101 U/L (45-117); BILIRUBIN,TOTAL 0.6 mg/dL (0.2-1.0); TOTAL PROTEIN 5.9 g/dL (6.4-8.2)
[2018-03-16 05:55] LABS: MEAN CORPUSCULAR HEMOGLOBIN 24.8 pg (27.5-34.5); MEAN CORPUSCULAR HGB CONC 32.3 g/dL (33.2-36.2); MEAN CORPUSCULAR VOLUME 76.9 fL (81-97); RED BLOOD COUNT 2.93 x10^6/uL (4.38-5.82); RED CELL DISTRIBUTION WIDTH 22.7 % (9.4-14.8)
[2018-03-16 06:08] LABS: PLATELET COUNT 44 x10^3/uL (130-400)
[2018-03-16 06:14] LABS: MD YES
[2018-03-16 06:17] LABS: <PLATELET ESTIMATE> DECREASED; <PLT MORPHOLOGY> NORMAL PLT MORPH; ANISOCYTOSIS 1+; BAND#(MANUAL) 0.13 x10^3/uL; BANDS%(MANUAL) 1 % (0-7); HYPOCHROMIA 1+; LYMPH#(MANUAL) 11.14 x10^3/uL (1-3.4); LYMPHS% (MANUAL) 87 % (22-44); MICROCYTOSIS 1+; MONOS#(MANUAL) 0.13 x10^3/uL (0.3-2.7); MONOS% (MANUAL) 1 % (2-9); OVALOCYTES 1+; POLYCHROMASIA 1+; SEG#(MANUAL) 1.41 x10^3/uL (1.8-6.8); SEGS% (MANUAL) 11 % (42-75)
[2018-03-16 08:10] VITALS: BP 120/73
[2018-03-16] MEDS: SENNA/DOCUSATE TABLET PO SCH (08:13)
[2018-03-16] MEDS: FAMOTIDINE 20 MG TABLET PO SCH ×2 (08:13→20:13)
[2018-03-16] MEDS: SODIUM CHLORIDE NASAL SPRAY 45ML BOTTLE NAS SCH ×2 (08:13→20:13)
[2018-03-16] MEDS: ONDANSETRON 16 MG, DEXAMETHASONE 10 MG in SODIUM CHLORIDE 0.9% 50 ML IVPB SCH (08:13)
[2018-03-16] MEDS: FEBUXOSTAT 40 MG TABLET PO SCH (08:13)
[2018-03-16 08:21] VITALS: BP 119/76
[2018-03-16] MEDS: SODIUM CHLORIDE 0.9% IVPB SCH (09:12)
[2018-03-16] MEDS: BENDAMUSTINE IVPB SCH (09:12)
[2018-03-16] MEDS ORDERED: LACTULOSE 20 GM/30 ML UDC PO PRN (09:30)
[2018-03-16] MEDS: SIMETHICONE 80 MG CHEW TAB PO PRN (10:13)
[2018-03-16 13:49] VITALS: BP 115/72
[2018-03-16] MEDS ORDERED: SODIUM CHLORIDE 0.9% 1,000 ML IV SCH (16:00)
[2018-03-16 19:56] VITALS: BP 140/73
[2018-03-16 20:06] VITALS: BP 113/72
[2018-03-17 01:24] VITALS: BP 113/75
[2018-03-17 04:53] LABS: ALBUMIN 2.6 g/dL (3.4-5.0); ANION GAP 5 mmol/L (5-15); CALCIUM 7.7 mg/dL (8.5-10.1); CHLORIDE 111 mmol/L (98-107)
[2018-03-17 04:56] LABS: RED BLOOD COUNT 2.86 x10^6/uL (4.38-5.82)
[2018-03-17 04:57] LABS: MEAN CORPUSCULAR HEMOGLOBIN 24.5 pg (27.5-34.5); MEAN CORPUSCULAR HGB CONC 32.3 g/dL (33.2-36.2); MEAN CORPUSCULAR VOLUME 75.8 fL (81-97); MEAN PLATELET VOLUME 7.7 fL (7.4-10.4); PLATELET COUNT 55 x10^3/uL (130-400); RED CELL DISTRIBUTION WIDTH 22.7 % (9.4-14.8)
[2018-03-17 04:58] LABS: ALANINE AMINOTRANSFERASE 13 U/L (12-78); ALKALINE PHOSPHATASE 91 U/L (45-117); BILIRUBIN,TOTAL 0.7 mg/dL (0.2-1.0)
[2018-03-17 05:41] LABS: MD YES
[2018-03-17 05:49] LABS: ANISOCYTOSIS 1+; LYMPH#(MANUAL) 7.31 x10^3/uL (1-3.4); LYMPHS% (MANUAL) 84 % (22-44); MONOS#(MANUAL) 0.09 x10^3/uL (0.3-2.7); MONOS% (MANUAL) 1 % (2-9); SEG#(MANUAL) 1.31 x10^3/uL (1.8-6.8); SEGS% (MANUAL) 15 % (42-75)
[2018-03-17 05:50] LABS: HYPOCHROMIA 1+; MICROCYTOSIS 1+; OVALOCYTES 1+; POLYCHROMASIA 1+; TEAR DROPS 1+
[2018-03-17 05:51] LABS: <PLATELET ESTIMATE> DECREASED; <PLT MORPHOLOGY> NORMAL PLT MORPH; SMUDGE CELLS 1+
[2018-03-17] MEDS ORDERED: FUROSEMIDE 20 MG/2 ML IV ONE (07:30)
[2018-03-17 07:42] VITALS: BP 113/71
[2018-03-17] MEDS: FAMOTIDINE 20 MG TABLET PO SCH ×2 (08:14→20:19)
[2018-03-17] MEDS: SENNA/DOCUSATE TABLET PO SCH (08:15)
[2018-03-17] MEDS: FEBUXOSTAT 40 MG TABLET PO SCH (08:15)
[2018-03-17] MEDS: SODIUM CHLORIDE NASAL SPRAY 45ML BOTTLE NAS SCH ×2 (08:16→20:19)
[2018-03-17] MEDS ORDERED: SODIUM CHLORIDE 0.9% 1,000 ML IV SCH (11:00)
[2018-03-17] MEDS: ONDANSETRON ODT 4 MG PO PRN (11:06)
[2018-03-17] MEDS: HEPARIN 5,000 UNITS/ML, 1ML SQ SCH ×2 (14:23→20:19)
[2018-03-17 14:29] VITALS: BP 94/55
[2018-03-17 15:19] VITALS: BP 96/55
[2018-03-17 19:20] VITALS: BP 91/52
[2018-03-18] VITALS (7 sets, daily range): BP systolic 100–114; BP diastolic 59–71
[2018-03-18 04:42] LABS: ALANINE AMINOTRANSFERASE 15 U/L (12-78); ALBUMIN 2.4 g/dL (3.4-5.0); ANION GAP 5 mmol/L (5-15); CALCIUM 7.6 mg/dL (8.5-10.1); CHLORIDE 110 mmol/L (98-107)
[2018-03-18 04:45] LABS: ALKALINE PHOSPHATASE 86 U/L (45-117); BILIRUBIN,TOTAL 1.1 mg/dL (0.2-1.0); TOTAL PROTEIN 5.7 g/dL (6.4-8.2)
[2018-03-18 04:50] LABS: MEAN CORPUSCULAR HEMOGLOBIN 24.2 pg (27.5-34.5); MEAN CORPUSCULAR HGB CONC 32.5 g/dL (33.2-36.2); MEAN CORPUSCULAR VOLUME 74.6 fL (81-97); MEAN PLATELET VOLUME 7.9 fL (7.4-10.4); PLATELET COUNT 73 x10^3/uL (130-400); RED CELL DISTRIBUTION WIDTH 22.5 % (9.4-14.8)
[2018-03-18 05:33] LABS: MD YES
[2018-03-18 05:35] LABS: LYMPH#(MANUAL) 8.01 x10^3/uL (1-3.4); LYMPHS% (MANUAL) 89 % (22-44); SEG#(MANUAL) 0.99 x10^3/uL (1.8-6.8); SEGS% (MANUAL) 11 % (42-75)
[2018-03-18 05:37] LABS: ANISOCYTOSIS 1+; MICROCYTOSIS 1+; OVALOCYTES 1+
[2018-03-18 05:38] LABS: HYPOCHROMIA 1+
[2018-03-18 05:39] LABS: <PLATELET ESTIMATE> DECREASED; <PLT MORPHOLOGY> NORMAL PLT MORPH; TEAR DROPS 1+
[2018-03-18] MEDS: HEPARIN 5,000 UNITS/ML, 1ML SQ SCH ×3 (06:17→21:28)
[2018-03-18] MEDS: FAMOTIDINE 20 MG TABLET PO SCH ×2 (09:50→21:25)
[2018-03-18] MEDS: SENNA/DOCUSATE TABLET PO SCH (09:50)
[2018-03-18] MEDS: FEBUXOSTAT 40 MG TABLET PO SCH (09:50)
[2018-03-18] MEDS: SODIUM CHLORIDE NASAL SPRAY 45ML BOTTLE NAS SCH ×2 (09:51→21:28)
[2018-03-18] MEDS: ACETAMINOPHEN 325 MG TABLET PO PRN (21:25)
[2018-03-19 01:03] VITALS: BP 108/67
[2018-03-19 02:45] VITALS: BP 113/70
[2018-03-19] MEDS: HEPARIN 5,000 UNITS/ML, 1ML SQ SCH ×3 (05:40→22:01)
[2018-03-19 06:03] LABS: MEAN CORPUSCULAR HEMOGLOBIN 24.8 pg (27.5-34.5); MEAN CORPUSCULAR VOLUME 75.2 fL (81-97); MEAN PLATELET VOLUME 7.4 fL (7.4-10.4); PLATELET COUNT 74 x10^3/uL (130-400); RED BLOOD COUNT 3.32 x10^6/uL (4.38-5.82); RED CELL DISTRIBUTION WIDTH 21.9 % (9.4-14.8)
[2018-03-19 06:15] LABS: ALANINE AMINOTRANSFERASE 19 U/L (12-78); ALBUMIN 2.5 g/dL (3.4-5.0); ANION GAP 6 mmol/L (5-15); CHLORIDE 107 mmol/L (98-107)
[2018-03-19 06:23] LABS: ALKALINE PHOSPHATASE 88 U/L (45-117); BILIRUBIN,TOTAL 1.7 mg/dL (0.2-1.0); CREATININE 1.27 mg/dL (0.7-1.3); TOTAL PROTEIN 5.9 g/dL (6.4-8.2)
[2018-03-19 06:31] LABS: MD YES
[2018-03-19 06:33] LABS: EOS% (MANUAL) 1 % (1-7); LYMPH#(MANUAL) 8.65 x10^3/uL (1-3.4); LYMPHS% (MANUAL) 84 % (22-44); MONOS% (MANUAL) 1 % (2-9); SEG#(MANUAL) 1.44 x10^3/uL (1.8-6.8); SEGS% (MANUAL) 14 % (42-75)
[2018-03-19 06:34] LABS: <PLATELET ESTIMATE> DECREASED; <PLT MORPHOLOGY> NORMAL PLT MORPH; ANISOCYTOSIS 1+; HYPOCHROMIA 1+; MICROCYTOSIS 1+; OVALOCYTES 1+; TEAR DROPS 1+
[2018-03-19 08:15] VITALS: BP 114/71
[2018-03-19] MEDS: FAMOTIDINE 20 MG TABLET PO SCH ×2 (09:44→22:00)
[2018-03-19] MEDS: FEBUXOSTAT 40 MG TABLET PO SCH (09:44)
[2018-03-19] MEDS: SENNA/DOCUSATE TABLET PO SCH (09:44)
[2018-03-19] MEDS: SODIUM CHLORIDE NASAL SPRAY 45ML BOTTLE NAS SCH ×2 (09:45→22:01)
[2018-03-19 12:44] VITALS: BP 108/71
[2018-03-19 20:53] VITALS: BP 114/60
[2018-03-19] MEDS: DIPHENHYDRAMINE/ZINC CRM 2%, 30GM TP PRN (22:18)
[2018-03-20] VITALS (8 sets, daily range): BP systolic 95–125; BP diastolic 57–71
[2018-03-20] MEDS: HEPARIN 5,000 UNITS/ML, 1ML SQ SCH ×3 (06:20→22:40)
[2018-03-20 06:32] LABS: MEAN CORPUSCULAR HGB CONC 32.7 g/dL (33.2-36.2); MEAN CORPUSCULAR VOLUME 76.4 fL (81-97); MEAN PLATELET VOLUME 7.3 fL (7.4-10.4); PLATELET COUNT 75 x10^3/uL (130-400); RED BLOOD COUNT 3.05 x10^6/uL (4.38-5.82); RED CELL DISTRIBUTION WIDTH 21.9 % (9.4-14.8)
[2018-03-20 06:38] LABS: ALBUMIN 2.5 g/dL (3.4-5.0); ANION GAP 4 mmol/L (5-15); CALCIUM 8.1 mg/dL (8.5-10.1); CHLORIDE 108 mmol/L (98-107)
[2018-03-20 06:42] LABS: ALANINE AMINOTRANSFERASE 17 U/L (12-78); ALKALINE PHOSPHATASE 86 U/L (45-117); BILIRUBIN,TOTAL 1.3 mg/dL (0.2-1.0); CREATININE 1.32 mg/dL (0.7-1.3); TOTAL PROTEIN 5.8 g/dL (6.4-8.2)
[2018-03-20 06:59] LABS: MD YES
[2018-03-20 07:01] LABS: ANISOCYTOSIS 1+; EOS#(MANUAL) 0.21 x10^3/uL (0.0-0.4); EOS% (MANUAL) 2 % (1-7); LYMPH#(MANUAL) 9.48 x10^3/uL (1-3.4); LYMPHS% (MANUAL) 92 % (22-44); MICROCYTOSIS 1+; MONOS% (MANUAL) 1 % (2-9); SEG#(MANUAL) 0.52 x10^3/uL (1.8-6.8); SEGS% (MANUAL) 5 % (42-75)
[2018-03-20 07:02] LABS: HYPOCHROMIA 1+; OVALOCYTES 1+; POLYCHROMASIA 1+; TEAR DROPS 1+
[2018-03-20 07:03] LABS: <PLATELET ESTIMATE> DECREASED; <PLT MORPHOLOGY> NORMAL PLT MORPH
[2018-03-20] MEDS: FEBUXOSTAT 40 MG TABLET PO SCH (08:59)
[2018-03-20] MEDS: FAMOTIDINE 20 MG TABLET PO SCH ×2 (08:59→22:40)
[2018-03-20] MEDS: SENNA/DOCUSATE TABLET PO SCH (08:59)
[2018-03-20] MEDS ORDERED: ACETAMINOPHEN 325 MG TABLET PO ONE (09:00)
[2018-03-20] MEDS ORDERED: DIPHENHYDRAMINE 25 MG CAPSULE PO ONE (09:00)
[2018-03-20] MEDS: SODIUM CHLORIDE NASAL SPRAY 45ML BOTTLE NAS SCH ×2 (09:00→22:41)
[2018-03-20] MEDS ORDERED: DIPHENHYDRAMINE 25 MG CAPSULE ONE (13:08)
[2018-03-20] MEDS: SODIUM CHLORIDE 0.9% 1,000 ML IV SCH ×2 (14:02→22:40)
[2018-03-20] MEDS ORDERED: TBO-FILGRASTIM 480 MCG/0.8 ML SQ ONE (15:30)
[2018-03-20] MEDS: DIPHENHYDRAMINE/ZINC CRM 2%, 30GM TP PRN (22:40)
[2018-03-21 04:22] VITALS: BP 108/63
[2018-03-21 04:41] LABS: MEAN CORPUSCULAR HGB CONC 33.7 g/dL (33.2-36.2); MEAN CORPUSCULAR VOLUME 77.2 fL (81-97); RED BLOOD COUNT 3.47 x10^6/uL (4.38-5.82); RED CELL DISTRIBUTION WIDTH 22.4 % (9.4-14.8)
[2018-03-21 04:48] LABS: ALBUMIN 2.7 g/dL (3.4-5.0); ANION GAP 3 mmol/L (5-15); CALCIUM 8.1 mg/dL (8.5-10.1); CHLORIDE 111 mmol/L (98-107)
[2018-03-21 04:51] LABS: ALANINE AMINOTRANSFERASE 16 U/L (12-78); ALKALINE PHOSPHATASE 89 U/L (45-117); BILIRUBIN,TOTAL 1.6 mg/dL (0.2-1.0); CREATININE 1.21 mg/dL (0.7-1.3); TOTAL PROTEIN 6.1 g/dL (6.4-8.2)
[2018-03-21 05:06] LABS: MD YES; MEAN PLATELET VOLUME 7.6 fL (7.4-10.4); PLATELET COUNT 79 x10^3/uL (130-400)
[2018-03-21 05:09] LABS: LYMPH#(MANUAL) 10.88 x10^3/uL (1-3.4); LYMPHS% (MANUAL) 80 % (22-44); SEG#(MANUAL) 2.72 x10^3/uL (1.8-6.8); SEGS% (MANUAL) 20 % (42-75)
[2018-03-21 05:10] LABS: ANISOCYTOSIS 1+; MICROCYTOSIS 1+
[2018-03-21 05:11] LABS: <PLATELET ESTIMATE> DECREASED; <PLT MORPHOLOGY> NORMAL PLT MORPH; HYPOCHROMIA 1+; OVALOCYTES 1+; POLYCHROMASIA 1+; TEAR DROPS 1+
[2018-03-21] MEDS: HEPARIN 5,000 UNITS/ML, 1ML SQ SCH (07:14)
[2018-03-21 07:54] VITALS: BP 104/63
[2018-03-21] MEDS: SENNA/DOCUSATE TABLET PO SCH (09:00)
[2018-03-21] MEDS: FAMOTIDINE 20 MG TABLET PO SCH (09:56)
[2018-03-21] MEDS: FEBUXOSTAT 40 MG TABLET PO SCH (09:56)
[2018-03-21] MEDS: SODIUM CHLORIDE NASAL SPRAY 45ML BOTTLE NAS SCH (09:56)
[2018-03-21] MEDS ORDERED: FEBU40TA PO (10:40)
[2018-03-21] MEDS ORDERED: TBO-FILGRASTIM 480 MCG/0.8 ML SQ ONE (15:30)
== END 2018-03-21 12:47 | disposition home or self-care (01) | DRG 824 ==
LOC: 3NW 19:26
PROVIDERS: ADMIT Family Medicine; ATTEND Family Medicine
PROC: 30233N1 Transfusion of Nonautologous Red Blood Cells into Peripheral Vein, Percutaneous Approach (ICD-10-PCS; 2018-03-02)
PROC: 07BH3ZX Excision of Right Inguinal Lymphatic, Percutaneous Approach, Diagnostic (ICD-10-PCS; principal; 2018-03-03)
PROC: 07DR3ZX Extraction of Iliac Bone Marrow, Percutaneous Approach, Diagnostic (ICD-10-PCS; 2018-03-04)
PROC: 07BC3ZX Excision of Pelvis Lymphatic, Percutaneous Approach, Diagnostic (ICD-10-PCS; 2018-03-07)
PROC: 02HV33Z Insertion of Infusion Device into Superior Vena Cava, Percutaneous Approach (ICD-10-PCS; 2018-03-13)
PROC: B5181ZA Fluoroscopy of Superior Vena Cava using Low Osmolar Contrast, Guidance (ICD-10-PCS; 2018-03-13)
PROC: 3E04305 Introduction of Other Antineoplastic into Central Vein, Percutaneous Approach (ICD-10-PCS; 2018-03-14)
DX: C83.10 Mantle cell lymphoma, unspecified site (principal); E44.0 Moderate protein-calorie malnutrition; I82.611 Acute embolism and thrombosis of superficial veins of right upper extremity; N17.9 Acute kidney failure, unspecified; B37.9 Candidiasis, unspecified; D50.9 Iron deficiency anemia, unspecified; D63.0 Anemia in neoplastic disease; G47.00 Insomnia, unspecified; N18.9 Chronic kidney disease, unspecified; D69.6 Thrombocytopenia, unspecified; K59.00 Constipation, unspecified; R11.2 Nausea with vomiting, unspecified; N43.3 Hydrocele, unspecified; Z82.0 Family history of epilepsy and other diseases of the nervous system; Z86.14 Personal history of Methicillin resistant Staphylococcus aureus infection; Z86.19 Personal history of other infectious and parasitic diseases; Z92.21 Personal history of antineoplastic chemotherapy; Z71.6 Tobacco abuse counseling; Z68.28 Body mass index [BMI] 28.0-28.9, adult
CPT/HCPCS: 36415; 36561; 38222; 38505; 49180; 71260; 74018; 74177; 76857; 76937; 76942; 77001; 77002; 77012; 80048; 80053; 82040; 82247; 82248; 82274; 82330; 82607; 82728; 82746; 83010; 83540; 83550; 83615; 83690; 83735; 84100; 84550; 85014; 85018; 85025; 85045; 85610; 85651; 85730; 86850; 86880; 86900; 86923; 87324; 88305; 88342; 88360; 99156; 99157; G0378; J0690; J1100; J1644; J1650; J1750; J2250; J2405; J3010; J3490; J9033; Q0162; Q9967; C1788; G0461; J1200; J1447; J1642; J1940; J2310; J7030; J7050; J9310; P9016; P9040; Q0163

== ENCOUNTER → 2018-05-28 | Outpatient (CLI) | payer OTHER ==
[~2018-05-28] MED LIST: CYAN-10 PO; FEBU40TA PO; MAGN400O7 PO; OMNIPAQUE 350 MG/ML, 100ML BOTTLE ONE
== END | disposition home or self-care (01) ==
LOC: RAD 11:09
PROVIDERS: ATTEND Internal Medicine Hematology & Oncology
DX: R16.1 Splenomegaly, not elsewhere classified (principal); J43.9 Emphysema, unspecified
CPT/HCPCS: 71260; 74177; J1642; Q9967

== ENCOUNTER → 2018-08-07 | Outpatient (CLI) | payer OTHER | END | disposition home or self-care (01) | LOC: CFH 10:10 | PROVIDERS: ATTEND Internal Medicine Hematology & Oncology | DX: J43.2 Centrilobular emphysema (principal); R16.1 Splenomegaly, not elsewhere classified; K80.20 Calculus of gallbladder without cholecystitis without obstruction; K57.30 Diverticulosis of large intestine without perforation or abscess without bleeding; C83.15 Mantle cell lymphoma, lymph nodes of inguinal region and lower limb | CPT/HCPCS: 71260; 74177; Q9967 ==

== ENCOUNTER 2018-08-20 06:08 | Day surgery (SDC) | payer OTHER ==
[~2018-08-20] VITALS: Ht 190.5 cm; Wt 99.0 kg
[~2018-08-20 06:08] MED LIST changes: -OMNIPAQUE 350 MG/ML, 100ML BOTTLE ONE
[2018-08-20 06:45] VITALS: BP 106/67
[2018-08-20] MEDS ORDERED: SODIUM CHLORIDE 0.9% 1,000 ML IV SCH (07:00)
[2018-08-20] MEDS ORDERED: NO MEDS PER PT (07:08)
[2018-08-20] MEDS ORDERED: LIDOCAINE-MPF 1%, 5ML ONE (08:02)
[2018-08-20] MEDS ORDERED: FENTANYL PF 100 MCG/2ML ONE (08:06)
[2018-08-20] MEDS ORDERED: MIDAZOLAM 1 MG/ML, 5ML ONE (08:07)
[2018-08-20] MEDS ORDERED: NALOXONE 1 MG/ML, 2ML ONE (08:07)
[2018-08-20] MEDS ORDERED: FLUMAZENIL 0.1 MG/1 ML, 5ML ONE (08:07)
[2018-08-20] MEDS ORDERED: ONDANSETRON 2MG/ML, 2ML ONE (08:32)
== END 2018-08-20 10:45 | disposition home or self-care (01) ==
LOC: OUT 06:08
PROVIDERS: ATTEND Internal Medicine Hematology & Oncology
DX: Z45.2 Encounter for adjustment and management of vascular access device (principal); C83.15 Mantle cell lymphoma, lymph nodes of inguinal region and lower limb; Z86.14 Personal history of Methicillin resistant Staphylococcus aureus infection
CPT/HCPCS: 36590; 77001; 99156; 99157; J2250; J2405; J3010; J7030; J2310